=== PATIENT | male | born 1965 | race Caucasian/White ===

== ENCOUNTER 2023-02-05 14:55 | Emergency (ER) | payer OTHER ==
[~2023-02-05] VITALS: Ht 180.3 cm; Wt 87.1 kg
[2023-02-05] MEDS ORDERED: BALANCED SALT IRRIG SOLN 15 ML IO ONE (15:00)
[2023-02-05] MEDS ORDERED: FLUORESCEIN SODIUM 1 MG OPHTHALMIC STRIP OP ONE (15:00)
[2023-02-05] MEDS ORDERED: TETRACAINE HCL/PF 0.5% OPHTHALMIC DROPS 4 ML OP ONE (15:00)
[2023-02-05 15:40] VITALS: BP_SYST 163; PULSE 93; RESP 22; TEMP 98.3; O2SAT 98
[2023-02-05] MEDS ORDERED: NEOSEYEO OP (16:32)
[2023-02-05] MEDS ORDERED: HYDR-3917 PO (16:32)
[2023-02-05] MEDS ORDERED: IBUP-1969 PO (16:32)
[2023-02-05 16:47] VITALS: BP_SYST 163; PULSE 93; RESP 22; TEMP 98.3; O2SAT 98
== END 2023-02-05 16:46 | disposition home or self-care (01) ==
LOC: SED 14:55
DX: S05.02XA Injury of conjunctiva and corneal abrasion without foreign body, left eye, initial encounter (principal); Z79.899 Other long term (current) drug therapy; X58.XXXA Exposure to other specified factors, initial encounter; Y93.89 Activity, other specified; Y92.89 Other specified places as the place of occurrence of the external cause; Y99.8 Other external cause status
CPT/HCPCS: 99283